=== PATIENT | male | born 1955 | race Caucasian/White ===

== ENCOUNTER 2024-06-29 09:09 | Day surgery (SDC) | payer MEDICARE, OTHER, SELFPAY ==
[2024-06-11 08:20] VITALS: BMI 29.2
--- NOTE | 2024-06-11 09:11 | HPS.HSE ---
Family Physician
-
Family Physician: Peña Norton
Chief Complaint
-
Paroxysmal atrial flutter.
History of Present Illness
The patient is a 69 year old male presenting today for paroxysmal atrial flutter. The patient reports intermittent palpitations, shortness of breath, and fatigue secondary to this diagnosis. Episodes of his arrhythmia, on average, occur
every 6 weeks. He is on current pharmacological therapy with Metoprolol Succinate. He reports he has been compliant with Eliquis for oral anticoagulation due to a CHADS-VASc of 2. Of note, home monitoring and previous EKGs have not demonstrated
atrial fibrillation. He reports that his current symptoms greatly interfere with his activities of daily living and have overall impacted his quality of life. He would like to proceed with an EP study and atrial flutter ablation for further
arrhythmia management. Should atrial fibrillation be detected on his EP study, he will also undergo pulmonary vein isolation. He reports palpitations today but denies chest pain, shortness of breath at rest, nausea, vomiting, diarrhea,
lightheadedness, dizziness, cough, sore throat, or fever.
Medical History
Past Medical History
Past Medical History: Reports Other
Additional Past Medical History:
1. Paroxysmal atrial flutter, pharmacological therapy with Metoprolol Succinate and oral anticoagulation with Eliquis.
2. Hypertension.
3. Sinus bradycardia.
4. First degree AV block.
5. Pulmonary nodules.
6. Obstructive sleep apnea, compliant with CPAP.
7. Colon polyps.
8. Fatty liver disease.
9. Vertigo.
10. History of tobacco abuse.
Past Surgical History: Reports Other
Additional Past Surgical History:
1. Cholecystectomy.
2. Right quadriceps tendon repair.
3. [place] teeth extraction.
4. Colonoscopy x3.
5. Endoscopy.
Social History
Tobacco: Former Smoker (He is a former less than 1 pack per day cigarette smoker who quit tobacco altogether in 1983. )
Alcohol: Other (Social. )
Personal:
Living: Other (He lives in a 3 story home with his . )
Family History
Family History: Not pertinent
Allergies / Home Medications
Allergy/Medication List:
Home medications:
1. Apixaban 5 mg p.o. twice a day.
2. Hydrochlorothiazide 25 mg p.o. daily.
3. Magnesium 250 mg p.o. at lunch.
4. Metoprolol Succinate 75 mg p.o. daily.
5. Metoprolol Succinate 50 mg p.o. every evening.
6. Saw palmetto 400 mg p.o. daily.
Allergies: No known allergies.
Review of Systems
-
A 12 point ROS was completed and negative except as noted: Yes
Physical Exam
Vital Signs
Blood pressure 140/80. Heart rate 57. Respirations 18. Pulse ox 97% on room air.
Height 6 feet, 4.5 inches. Weight 110.4 kg. BMI 29.2.
Physical Exam
General: Well Developed, Well Nourished and No Apparent Distress
HEENT: NormoCephalic, Moist mucous membranes, Atraumatic and PERRLA
Respiratory: Clear
Cardiac: Bradycardia
GI: Soft, Non Tender and Non Distended
Musculoskeletal: No Edema and Normal Gait & Station
Skin: Warm and Dry
Neuro: AO x 3 and Nonfocal/grossly intact
Laboratory Results
-
DIAGNOSTIC STUDIES as of 06/11/2024: White blood cell count 5.4. Hemoglobin 14.2. Platelet count 271,000. PT 14.6. INR 1.11. Sodium 139. Potassium 4.0. BUN 18. Creatinine 1.0. Glucose 102. Calcium 9.0. Magnesium 1.9. AST 26. ALT 28. Albumin 4.4.
Type and screen B negative.
EKG 06/11/2024: Sinus bradycardia with first degree AV block. RSR or QR pattern in V1 suggests right ventricular conduction delay. Minimal voltage criteria for LVH, may be normal variant.
Chest CT 06/11/2024: Normal, conventional pulmonary venous anatomy. No left atrial filling defect/thrombus is identified.
Echocardiogram 12/16/2023: Ejection fraction is 64%. Mild left ventricular hypertrophy. No significant valvular disease.
Impression/Plan
-
IMPRESSION/PLAN:
1. Paroxysmal atrial flutter: The patient will proceed with an EP study and atrial flutter ablation with Dr. Francisco Mancia on 06/29/2024. Should his EP study detect atrial fibrillation, he will also undergo pulmonary vein isolation. The benefits and
risks of the procedure have been explained to the patient. The patient understands these risks and wishes to proceed. He will not be required to undergo a pre-procedural transesophageal echocardiogram as he has been compliant with his home oral
anticoagulation. He is aware to continue Eliquis uninterrupted prior to his procedure. He will take no medications the morning of his ablation.
[2024-06-29] VITALS (13 sets, daily range): BP systolic 94–139; BP diastolic 49–94
--- NOTE | 2024-06-29 11:58 | ITS.CL.ABL ---
Dental Mechanic - Ablation
Ablation
Procedure Report:
Primary Driver'S Education Instructor: Robinson Erickson MD
Procedure Date: 06/29/2024
Patient History:
Patient is a pleasant 69-year-old male with a past medical history significant for sleep apnea, hypertension, paroxysmal typical atrial flutter.
See H&P for complete details.
Indication:
Symptomatic paroxysmal atrial flutter
Paroxysmal atrial fibrillation
Arrhythmia Specific History:
Prior Medical Therapies for Rate and Rhythm Control:
X Beta-roni
[ ] Calcium channel-roni
[ ] Amiodarone
[ ] Dronederone
[ ] Sotalol
[ ] Flecainide
[ ] Dofetilide
[ ] Options limited by bradycardia
[ ] Options limited by comorbid renal disease
Prior Procedural Therapies for AF/AFL:
[ ] Cardioversion
[ ] Pulmonary Vein Isolation
[ ] Posterior Wall Isolation
[ ] Additional lines (Specify)
[ ] Surgical Coronel-MAZE or PVI (Specify)
Procedure Performed:
X AF ablation procedure (02799) -- includes LA/CS pacing, trans-septal, 3D mapping, + ICE
[ ] +IV drug (04018)
X +Other Arrhythmia (87985) - CTI RFA for Atrial Flutter
[ ] +Other AF Line/ablation (56736)
Risks and expected recovery has been explained in detail. Alternative options have been explored, and in a shared-decision making fashion we have decided that this was the most appropriate procedure.
Method
NPO status confirmed. Grounding pad applied. Defibrillator pads applied. Continuous surface ECG, pulse oximetry, and blood pressure were monitored. Procedure was performed under general anesthesia, with anesthesia services.
Both groins were clipped, prepped with Chloraprep, and draped in sterile fashion. Time out was called. Local anesthesia administered with bupivacaine. The right femoral vein was accessed for catheter placement, using ultrasound guidance (images
saved to record), micro-puncture needle/wire, and modified seldinger technique. 3 sheaths were placed. The following catheters were used:
X Tacticath SE (D/F Curve) ablation catheter
X Viewflex 9Fr ICE catheter
X Inquiry decapolar 6Fr diagnostic catheter
[ ] CRD Hex 6Fr
[ ] Arctic Front Advance Cryoballoon ([ ]28mm[ ]23mm)
[ ] Achieve Advance mapping catheter ([ ]15mm[ ]20mm)
X FlexCath Contour 10 Fr with PulseSelect PFA Catheter
X Advisor HD Grid Mapping Catheter, SE
[ ] Acuson AcuNav 8 Fr ICE catheter
[ ]Other: [ ]
Intracardiac ultrasound (ICE) was carefully advanced into the right atrium to guide sheath placement over a J-wire, catheter placement, guide trans-septal puncture, identify potential complications, identify anatomic structures and ensure proper
contact between ablation catheter and tissue. A trace basal LV pericardial effusion was noted at the start of procedure which remained unchanged during and after procedure.
Patient entered the room in sinus rhythm. Tacticath was advanced into the RA through the steerable sheath. During mapping of the RA and CTI, tachycardia initiated with a TCL of 230-250, proximal to distal CS activation. Overdrive pacing produced
concealed entrained morphology however pacing terminated the tachycardia. Given patient's history of paroxysmal atrial flutter and current findings, CTI RFA was performed; an ablation line was created from the tricuspid annulus to the IVC in the
6:00 position (WALLISIAN clock). Power was titrated between 30 and 40 [place]. Following completion of the CTI RFA, during repeat testing for bi-directional block, spontaneous AF initiated. This sustained with spontaneous return to sinus rhythm. Given
patient's symptomatic history of palpitations and atrial arrhythmia with finding of sustained AF, AF ablation proceeded.
Heparin was given prior to trans-septal puncture. Heparin was given to achieve and maintain a target ACT of 300-400 seconds throughout the procedure.
Trans-septal access was performed under ICE guidance. The trans-septal puncture was performed with a SafeSept wire through a Brockenbrough needle assembly through the steerable sheath. The wire was visualized as it entered the LSPV and system
advanced under ICE guidance and fluoroscopy into the LA. The Brockenbrough needle assembly, SafeSept wire and sheath dilator were removed under negative pressure. LA pressure was measured and recorded (20).
ICE and 3D mapping was performed to identify relevant cardiac structures. A careful 3D map was created to assess for regions of low-voltage and abnormal electrogram signals using HD grid mapping catheter and PulseSelect catheter. Additional mapping
was performed as outlined below.
Prior to ablation, glycopyrrolate was provided. PulseSelect catheter was advanced over J-wire to the ostium of each vein. Pulmonary vein isolation was performed with ostial and antral lesions in a circumferential manner. Contact was visualized via
EAM, ICE, fluoroscopy, and EGM signals. Following completion of ablation lesions, a post-ablation voltage/activation map was performed in sinus rhythm. Entrance and exit block were confirmed for each vein.
Catheter and sheath were removed from the left atrium and post-ablation intracardiac echo evaluation was consistent with pre-ablation with no changes and no change to trace pericardial effusion and there is no left atrial thrombus or left ventricle
thrombus seen.
Repeat electroanatomic mapping of the CTI was performed in the RA. With CS pacing, breakthrough was noted within the center of the CTI RFA line. Repeat ablation was performed demonstrating wide-split potentials along the line and persistent
increased trans-isthmus time with bidirectional block. Following a waiting period, bidirectional block persistent.
Electrophysiology study was performed. No arrhythmias were induced. Hemostasis was obtained with Vascade for each sheath and with manual pressure. Protamine was used for reversal.
Estimated Blood Loss
5 mL
Complications
None
Fluoroscopy: 8.4 minutes; 61.20 mGy; DAP 8.51
Baseline Intervals:
Rhythm: SR
NV: 186 ms
QRS: 85 ms
QT: 430 ms
QTc: 399 ms
A-A: 1160 ms
R-R: 1160 ms
Post-Procedure Intervals:
NV: 184 ms
QRS: 95 ms
QT: 450 ms
AVWB: 590 ms
AVNERP: 600/330 ms
AERP: 600/270 ms
Recommendations
- Bedrest with straight-leg precautions as ordered
- Anticipate same day discharge if patient meeting clinical metrics
- Resume home medications as indicated
- Ok to resume anticoagulation tonight if patient and groin sites stable
- PPI daily for 30 days
- Plan for follow-up in office as scheduled
Francisco Mancia DO, FACC
Clinical Cardiac Dial Mounter
cc: Robinson Erickson MD; Dr Peña Steinberg
[2024-06-29 13:16] LABS: ACT-LR - POC 265 Seconds (116-155)
[2024-06-29 13:35] LABS: ACT-LR - POC 355 Seconds (116-155)
[2024-06-29 14:05] LABS: ACT-LR - POC 393 Seconds (116-155)
[2024-06-29 15:03] LABS: ACT-LR - POC > 397 Seconds (116-155)
[2024-06-29 15:03] LABS: ACT-LR - POC > 397 Seconds (116-155)
--- NOTE | 2024-06-29 16:51 | W.PN.UPDATE ---
Update Note
Progress Note Update
Pt seen post AFib PFA and AFLutter RFA. Right groin site with vascade closure, no ht/bleeding. Post EKG NSR 70s, no acute changes. Resume elqiuis tonight. BP soft and pt will hold evening metoprolol and restart in AM. Continue all other meds as
before. Followup at [facility] as scheduled and with Dr. Erickson thereafter. Home today if groin site/tele remains stable.
== END 2024-06-29 18:17 | disposition home or self-care (01) ==
LOC: CATH 09:09
PROVIDERS: ATTENDING PHYSICIAN Internal Medicine Cardiovascular Disease; FAMILY PHYSICIAN Family Medicine
DX: I48.0 Paroxysmal atrial fibrillation (principal); I48.92 Unspecified atrial flutter; R00.2 Palpitations; R06.02 Shortness of breath; I11.9 Hypertensive heart disease without heart failure; Z79.899 Other long term (current) drug therapy; I44.0 Atrioventricular block, first degree; G47.33 Obstructive sleep apnea (adult) (pediatric); Z86.0100 Personal history of colon polyps, unspecified; K76.0 Fatty (change of) liver, not elsewhere classified; R42 Dizziness and giddiness; Z87.891 Personal history of nicotine dependence; Z90.49 Acquired absence of other specified parts of digestive tract; Z98.890 Other specified postprocedural states; Z79.01 Long term (current) use of anticoagulants
CPT/HCPCS: C1732; C1894; C1769; C1766 ×2; C2630; C1733; 76937; 85347; 86900; 86901; 93005; 93655; 93656; C1730; C1760